=== PATIENT | male | born 1945 | race Caucasian/White ===

== ENCOUNTER 2023-09-21 12:08 | Outpatient (AMB) | payer MEDICARE, SELFPAY ==
--- NOTE | 2023-09-21 12:14 | HO.NEPHOV ---
HPI HPI Comments History of Present Illness Details I had the privilege of seeing Maverick in the office for his chronic kidney disease and hypertension. He was accompanied by his . In May this year he underwent angiography and stenting of his LAD . He had been on Brilinta at that time which has caused him to have GI bleed as well as mild intracranial bleed. Brilinta was stopped at that time. He underwent endoscopy and was found to have esophageal varices. He had banding of the same. He was meant to be started on Plavix but has not started that yet. He has not had cardiac rehab either yet. He has an upcoming cardiology appointment with Dr. Peck. He denies any chest pain, shortness of breath, proximal nocturnal dyspnea, orthopnea, pedal edema or orthostatic symptoms. He has not been taking any nonsteroidal anti-inflammatory medications. He has prostatic symptoms for which he has seen a urologist who recommended intervention which is on hold for now. He denies any nausea vomiting, diarrhea, hematemesis, melena or hematuria. He does not drink alcohol anymore. His blood pressure has been at goal at home. [facility] Medical History (Updated 09/21/23 @ 21:29 by Yo Wilkerson MD) Hypertension Surgical History (Updated 09/21/23 @ 12:19 by Bela Smith MA) History of endoscopy History of heart artery stent Family History (Updated 09/21/23 @ 12:20 by Bela Smith MA) Father Heart attack (Updated 09/21/23 @ 12:19 by Bela Smith MA) Alcohol intake: never Patient Tobacco Use Status: Former Tobacco user Vital Signs 09/21/23 12:16 Height 5 ft 11 in Weight 229 lb 4 oz BMI 32.0 BP 120/72 Blood Pressure Location Lt brachial Position Left Lateral Pulse 59 Pulse Source Pulse Oximeter Physical Exam Vital Signs: Last Vital Signs Pulse 59 09/21/23 12:16 BP 120/72 09/21/23 12:16 BMI result Body Mass Index 32.0 Const General: comfortable and no acute distress Orientation/consciousness: patient oriented x3 HEENT Head: Yes normocephalic Mouth: Normal oral and palatal mucosa present Eyes EOM: EOMs intact bilaterally Neck Neck: Yes supple Resp Auscultation: clear to auscultation bilaterally Cardio Jugular venous distension: no JVD Rate: regular rate GI Palpation (GI): Soft to palpation Auscultation: normal bowel sounds General: Yes no CVA tenderness Back/Spine/Pelvis Back: no CVA tenderness Skin General skin exam: no rashes or lesions noted Neuro General: patient oriented x3 and moves all extremities Extrem General: Yes no pedal edema Assessment & Plan Assessment & Plan (1) Hypertension: Code(s): I10 - Essential (primary) hypertension Qualifiers: Hypertension type: primary hypertension Qualified Code(s): I10 - Essential (primary) hypertension (2) CKD (chronic kidney disease) stage 3, GFR 30-59 ml/min: Code(s): N18.30 - Chronic kidney disease, stage 3 unspecified Qualifiers: Chronic kidney disease stage 3 subtype: stage 3a (GFR 45-59) Qualified Code(s): N18.31 - Chronic kidney disease, stage 3a Plan Maverick has chronic kidney disease stage 3 at baseline. He has coronary artery disease needing stenting recently. He did not have any contrast nephropathy or cholesterol embolism. His renal functions are stable. His blood pressure is at goal. He needs to lose weight. He had GI bleed and his Brilinta has been on hold . He needs to touch base with his senior materials planner and should go back on anticoagulation to prevent stent thrombosis . He should have a cardiac rehab. He has esophageal varices and is on propranolol. When appropriate we will start him on low-dose ANGELA-inhibitor. He has prostatic symptoms and needs definitive therapy by Urology. He should avoid nonsteroidal anti-inflammatory medication and should be on a low-sodium diet. All these have been discussed in detail with him and his . I have answered their questions. Follow-up blood work ordered. Time spent retrieving data, patient encounter and documentation 43 minutes. Orders: Orders Electrolytes Today I10 - Essential (primary) hypertension, N18.30 - Chronic kidney disease, stage 3 unspecified Blood Urea Nitrogen Today I10 - Essential (primary) hypertension, N18.30 - Chronic kidney disease, stage 3 unspecified Calcium Today I10 - Essential (primary) hypertension, N18.30 - Chronic kidney disease, stage 3 unspecified Creatinine Today I10 - Essential (primary) hypertension, N18.30 - Chronic kidney disease, stage 3 unspecified Protein Creatinine Ratio, Ur Today I10 - Essential (primary) hypertension, N18.30 - Chronic kidney disease, stage 3 unspecified Coding Level of Care Code Est Pt Level 4 (55250) Diagnoses Primary hypertension I10 Hypertension type: primary hypertension Stage 3a chronic kidney disease N18.31 Chronic kidney disease stage 3 subtype: stage 3a (GFR 45-59)
[2023-09-21 12:16] VITALS: BP 120/72; PULSE 59; BMI 32.0
== END 2023-09-21 14:13 | disposition home or self-care (01) ==
PROVIDERS: PCP Internal Medicine; Visit Provider Internal Medicine Nephrology
DX: I10 Essential (primary) hypertension (principal); N18.31 Chronic kidney disease, stage 3a
CPT/HCPCS: 99214

== ENCOUNTER → 2023-09-21 12:08 | Outpatient (BNVA) | payer MEDICARE, SELFPAY | PROVIDERS: PCP Internal Medicine; Visit Provider Internal Medicine Nephrology | DX: I12.9 Hypertensive chronic kidney disease with stage 1 through stage 4 chronic kidney disease, or unspecified chronic kidney disease (principal); N18.31 Chronic kidney disease, stage 3a; Z95.5 Presence of coronary angioplasty implant and graft | CPT/HCPCS: 99212 ==

== ENCOUNTER 2024-03-31 10:03 | Outpatient (AMB) | payer MEDICARE, SELFPAY ==
--- NOTE | 2024-03-31 10:20 | HO.NEPHOV ---
Vital Signs 03/31/24 10:22 Height 5 ft 11 in Weight 226 lb 8 oz BMI 31.6 BP 130/70 Blood Pressure Location Rt brachial Position Sitting Pulse 66 Pulse Source Pulse Oximeter Pulse Oximetry (%) 96 Oxygen Delivery Method Room Air Intake Visit Reasons: 6M follow up/ LVM Retirement Benefits Specialist Required: No Accompanied by: Self / Same As Patient Allergies No Known Allergies Allergy (Verified 03/31/24 10:24) HPI Comments Details: I had the privilege of seeing Maverick in the office for his chronic kidney disease and hypertension. He was accompanied by his . In May 2023 he underwent angiography and stenting of his LAD . He had been on Brilinta at that time which has caused him to have GI bleed as well as mild intracranial bleed. Brilinta was stopped at that time. He underwent endoscopy and was found to have esophageal varices. He had banding of the same. He denies any chest pain, shortness of breath, proximal nocturnal dyspnea, orthopnea, pedal edema or orthostatic symptoms. He has not been taking any nonsteroidal anti-inflammatory medications. He has prostatic symptoms for which he has seen a urologist ( Dr Isaacs). He denies any nausea vomiting, diarrhea, hematemesis, melena or hematuria. His blood pressure has been at goal at home. [facility] Medical History (Updated 09/21/23 @ 21:29 by Yo Wilkerson MD) Hypertension Surgical History History of endoscopy History of heart artery stent Family History Father Heart attack Social History Alcohol intake: never Patient Tobacco Use Status: Former Tobacco user Physical Exam Vital Signs: Last Vital Signs Pulse 66 03/31/24 10:22 BP 130/70 03/31/24 10:22 Pulse Ox 96 03/31/24 10:22 Oxygen Delivery Method Room Air 03/31/24 10:22 BMI result Body Mass Index 31.6 Const General: comfortable and no acute distress Orientation/consciousness: patient oriented x3 HEENT Head: Yes normocephalic Mouth: Normal oral and palatal mucosa present Eyes EOM: EOMs intact bilaterally Neck Neck: Yes supple Resp Auscultation: clear to auscultation bilaterally Cardio Jugular venous distension: no JVD Rate: regular rate GI Palpation (GI): Soft to palpation Auscultation: normal bowel sounds General: Yes no CVA tenderness Back/Spine/Pelvis Back: no CVA tenderness Skin General skin exam: no rashes or lesions noted Neuro General: patient oriented x3 and moves all extremities Extrem General: Yes no pedal edema Results Reviewed Nephrology Results: No Data to Display Assessment & Plan Assessment & Plan (1) CKD (chronic kidney disease) stage 3, GFR 30-59 ml/min: Code(s): N18.30 - Chronic kidney disease, stage 3 unspecified Category: Medical Qualifiers: Chronic kidney disease stage 3 subtype: stage 3a (GFR 45-59) Qualified Code(s): N18.31 - Chronic kidney disease, stage 3a (2) Hypertension: Code(s): I10 - Essential (primary) hypertension Category: Medical Qualifiers: Hypertension type: primary hypertension Qualified Code(s): I10 - Essential (primary) hypertension Plan Maverick has chronic kidney disease stage 3 at baseline. He has coronary artery disease needing stenting . He did not have any contrast nephropathy or cholesterol embolism. His renal functions are stable. His blood pressure is at goal. He needs to lose weight. He had GI bleed and his Brilinta has been on hold. He has esophageal varices and is on propranolol. When appropriate we will start him on low-dose ANGELA-inhibitor. He has prostatic symptoms and ideally he needs definitive therapy by Urology. He should avoid nonsteroidal anti-inflammatory medication and should be on a low-sodium diet. All these have been discussed in detail with him. I have answered their questions. Follow-up blood work ordered. Orders: Orders Electrolytes Today I10 - Essential (primary) hypertension, N18.31 - Chronic kidney disease, stage 3a Blood Urea Nitrogen Today I10 - Essential (primary) hypertension, N18.31 - Chronic kidney disease, stage 3a Creatinine Today I10 - Essential (primary) hypertension, N18.31 - Chronic kidney disease, stage 3a Coding Level of Care Code Est Pt Level 4 (75318) Diagnoses Stage 3a chronic kidney disease N18.31 Chronic kidney disease stage 3 subtype: stage 3a (GFR 45-59) Primary hypertension I10 Hypertension type: primary hypertension
[2024-03-31 10:22] VITALS: BP 130/70; PULSE 66; O2SAT 96; BMI 31.6
== END 2024-03-31 10:53 | disposition home or self-care (01) ==
PROVIDERS: PCP Internal Medicine; Visit Provider Internal Medicine Nephrology
DX: N18.31 Chronic kidney disease, stage 3a (principal); I10 Essential (primary) hypertension
CPT/HCPCS: 99214

== ENCOUNTER → 2024-03-31 10:03 | Outpatient (BNVA) | payer MEDICARE, SELFPAY | PROVIDERS: PCP Internal Medicine; Visit Provider Internal Medicine Nephrology | DX: I12.9 Hypertensive chronic kidney disease with stage 1 through stage 4 chronic kidney disease, or unspecified chronic kidney disease (principal); N18.31 Chronic kidney disease, stage 3a | CPT/HCPCS: 99212 ==

== ENCOUNTER 2024-09-29 11:01 | Outpatient (AMB) | payer MEDICARE, SELFPAY ==
--- NOTE | 2024-09-29 11:07 | HO.NEPHOV ---
Vital Signs 09/29/24 11:08 Height 5 ft 11 in Weight 225 lb BMI 31.4 BP 109/56 L Pulse 62 Pulse Source Monitor Intake Visit Reasons: 6 mon follow up-Conf Sandblaster Supervisor Required: No Accompanied by: Self / Same As Patient Allergies No Known Allergies Allergy (Verified 09/29/24 11:09) HPI Comments Details: Maverick was seen by [facility] for his chronic kidney disease and hypertension. In May 2023 he underwent angiography and stenting of his LAD . He had been on Brilinta at that time which has caused him to have GI bleed as well as mild intracranial bleed. Brilinta was stopped at that time. He underwent endoscopy and was found to have esophageal varices. He had banding of the same. He denies any chest pain, shortness of breath, proximal nocturnal dyspnea, orthopnea, pedal edema or orthostatic symptoms. He has not been taking any nonsteroidal anti-inflammatory medications. He has prostatic symptoms for which he has seen a urologist ( Dr Isaacs). He denies any nausea vomiting, diarrhea, hematemesis, melena or hematuria. His blood pressure has been at goal at home. He has been having SOB more so on exertion. He had seen Dr Peck. He had his Isosorbide dose increased to 60 mg. Farxiga was added to the regimen which he did not tolerate. He underwent cardiac catherterisation as well. His renal function remained stable. He has been having anemia and is going to F/U with GI given H/O banding. [facility] Medical History (Updated 09/21/23 @ 21:29 by Yo Wilkerson MD) Hypertension Surgical History History of endoscopy History of heart artery stent Family History Father Heart attack Social History Alcohol intake: never Patient Tobacco Use Status: Former Tobacco user Review of Systems Const All systems reviewed & are unremarkable except as noted in HPI and below Physical Exam Vital Signs: Last Vital Signs Pulse 62 09/29/24 11:08 BP 109/56 L 09/29/24 11:08 BMI result Body Mass Index 31.4 [facility]: Telephone Location of provider rendering services: practice address Location of patient: address on file Patient Identification confirmed using: Name, : Yes Telehealth method: voice only Patient verbally consented to treatment: Yes Patient verbally consented to billing insurance company: Yes Patient informed of any privacy concerns related to visit: No Minutes spent on Phone/Video with Pt.: 10 Results Reviewed Nephrology Results: No Data to Display Assessment & Plan Assessment & Plan (1) CKD (chronic kidney disease) stage 3, GFR 30-59 ml/min: Code(s): N18.30 - Chronic kidney disease, stage 3 unspecified Category: Medical Qualifiers: Chronic kidney disease stage 3 subtype: stage 3a (GFR 45-59) Qualified Code(s): N18.31 - Chronic kidney disease, stage 3a (2) Hypertension: Code(s): I10 - Essential (primary) hypertension Category: Medical Qualifiers: Hypertension type: primary hypertension Qualified Code(s): I10 - Essential (primary) hypertension Plan Maverick has chronic kidney disease stage 3 at baseline. He has coronary artery disease needing stenting . He did not have any contrast nephropathy or cholesterol embolism. His renal functions are stable. His blood pressure is at goal. He needs to lose weight. He has H/O GI bleed. He has esophageal varices and had banding. He is on propranolol. When appropriate we will start him on low-dose ANGELA-inhibitor. He has prostatic symptoms and ideally he needs definitive therapy by Urology. He should avoid nonsteroidal anti-inflammatory medication and should be on a low-sodium diet. All these have been discussed in detail with him. I have answered their questions. Follow-up blood work ordered Orders: Orders Blood Urea Nitrogen 6 Months I10 - Essential (primary) hypertension, N18.31 - Chronic kidney disease, stage 3a Creatinine 6 Months I10 - Essential (primary) hypertension, N18.31 - Chronic kidney disease, stage 3a Electrolytes 6 Months I10 - Essential (primary) hypertension, N18.31 - Chronic kidney disease, stage 3a Medications: New amlodipine 5 mg PO DAILY 90 tabs 0RF Coding Level of Care Code Est Pt Level 4 (69966) Diagnoses Stage 3a chronic kidney disease N18.31 Chronic kidney disease stage 3 subtype: stage 3a (GFR 45-59) Primary hypertension I10 Hypertension type: primary hypertension
[2024-09-29 11:08] VITALS: BP 109/56; PULSE 62; BMI 31.4
--- OUTSIDE RECORDS SUMMARY | 2024-10-05 01:49 | XMS_ITS | Continuity of Care Document ---
Author Organization [facility] Address [address] [place] [id number] Care Team Providers Care Cash Clerk Name Role Phone Hernesto Griffiths MD Primary Care Physician Encounter [facility] Date(s[facility] 08/24/24 - 09/23/24 [facility] [address] [place] [phone] Encounter Type: Triage Allergies, Adverse Reactions, Alerts Substance Criticality Severity Reaction Reaction Severity Status dapagliflozin Active Medications allopurinol 100 mg oral tablet 50 mg, 0.5, tablet, By Mouth, Daily, # 90 tablet, Refills 0, Maintenance, 08/09/24 9:01:00 AM EDT, Route to Pharmacy Electronically, [id number], 180, cm, 08/05/24 9:47:00 EDT, Height, 106, kg, 08/05/24 9:47:00 EDT, Dry Weight Start Date: 08/09/24 Status: Ordered Quantity: 90.0 Unit: tablet Repeat number: 1 amLODIPine 5 mg oral tablet 5 mg, 1, tablet, By Mouth, Daily, # 90 tablet, Refills 3, Tot. Refills 3, Maintenance, 08/05/24 7:30:00 PM EDT, Route to Pharmacy Electronically, [id number], Partial fill upon patient requestif the prescription is for a schedule II opioid drug., 180, cm, 08/05/24 9:47:00 EDT, Height, 106, kg, 08/05/24 9:47:00 EDT, Dry Weight Start Date: 08/05/24 Status: Ordered Quantity: 90.0 Unit: tablet Repeat number: 4 aspirin 81 mg oral delayed release tablet 81 mg, 1, tablet, By Mouth, Daily, # 90 tablet, Refills 0, Tot. Refills 0, Maintenance, 04/06/23 1:47:00 PM EDT, Route to Pharmacy Electronically, [facility] #[id number], Partial fill upon patient requestif the prescription is for a schedule II opioid drug., 180, cm, 04/06/23 13:11:00 EDT, Height, 105.1, kg, 04/17/22 14:02:00 EDT, Dry Weight Start Date: 04/06/23 Status: Ordered Quantity: 90.0 Unit: tablet Repeat number: 1 atorvastatin 20 mg oral tablet 1 tablet = 20 mg, By Mouth, Daily, # 90 tablet, 3 Refills, Maintenance, 05/13/24 3:20:00 PM EDT, Tablet, [id number], Partial fill upon patient request if the prescription is for a schedule II opioid drug., 180, cm, 05/13/24 14:36:00 EDT, Height Start Date: 05/13/24 Status: Ordered Quantity: 90.0 Unit: tablet Repeat number: 4 dapagliflozin 10 mg oral tablet 1 tablet = 10 mg, By Mouth, Daily, # 90 tablet, 0 Refills, Maintenance, 08/05/24 5:19:00 PM EDT, Tablet, [facility], Partial fill upon patient request if the prescription is for a schedule II opioid drug., 180, cm, 08/05/24 9:47:00 EDT, Height, 106, kg, 08/05/24 9:47:00 EDT, Dry Weight Start Date: 08/05/24 Status: Ordered Quantity: 90.0 Unit: tablet Repeat number: 1 ferrous sulfate 324 mg (65 mg elemental iron) oral delayed release tablet 1 tablet = 324 mg, By Mouth, Daily, # 90 tablet, 0 Refills, Maintenance, 08/15/24 9:41:00 AM EDT, [facility], Partial fill upon patient request if the prescription is for a schedule II opioiddrug., 180, cm, 08/15/24 9:08:00 EDT, Height, 106, kg, 08/05/24 9:47:00 EDT, Dry Weight Start Date: 08/15/24 Status: Ordered Quantity: 90.0 Unit: tablet Repeat number: 1 isosorbide mononitrate 60 mg oral tablet, extended release 60 mg, 1, tablet, By Mouth, Daily in AM, # 90 tablet, Refills 3, Tot. Refills 3, Maintenance, 08/29/24 12:09:00 PM EST, Route to Pharmacy Electronically, [facility], Partial fill upon patient request if the prescription is for a schedule II opioid drug., 180, cm, 08/15/24 9:08:00 EDT, Height, 106, kg, 08/05/24 9:47:00 EDT, Dry Weight Start Date: 08/29/24 Status: Ordered Quantity: 90.0 Unit: tablet Repeat number: 4 nadolol 20 mg oral tablet 10 mg, 0.5, tablet, By Mouth, Daily, # 15 tablet, Refills 11, Tot. Refills 11, Maintenance, 10/30/23 3:07:00 PM EST, Route to Pharmacy Electronically, [facility], Partial fill upon patient request if the prescription is for a schedule II opioid drug., 180, cm, 10/30/23 14:42:00 EST, Height, 105.1, kg, 04/17/22 14:02:00 EDT, Dry Weight Start Date: 10/30/23 Stop Date: 10/24/24 Status: Ordered Quantity: 15.0 Unit: tablet Repeat number: 12 nitroglycerin 0.4 mg sublingual tablet 1 tablet = 0.4 mg, Sublingual, Every 5 minutes, PRN as needed for chest pain, not to exceed 3 doses/15 min--if pain persists, seek medical attention, # 25 tablet, 0 Refills, Maintenance, 08/19/24 8:17:00 AM EDT, Tablet, [facility], Partial fill upon patient request if the prescription is for a schedule II opioid drug., 180, cm, 08/15/24 9:08:00 EDT, Height, 106, kg, 08/05/24 9:47:00 EDT, Dry Weight Start Date: 08/19/24 Status: Ordered Quantity: 25.0 Unit: tablet Repeat number: 1 Problem List Condition Confirmation Course Effective Dates Status H ealth Status Informant Aneurysm of infrarenal abdominal aorta Confirmed Active Aortic stenosis, 05/17 mild to mod Confirmed Active BPH without obstruction/lower urinary tract symptoms Confirmed Active Carotid artery stenosis; [facility] Confirmed Active CKD (chronic kidney disease) stage 3; Dr Wilkerson Confirmed Active Cirrhosis, [facility] Confirmed Active CAD s/p NADIR 06/17 Confirmed Active Alcohol use Confirmed Active Dyslipidemia Confirmed Active Liver enzyme elevation Confirmed Active Gout Confirmed Active Hard of hearing Confirmed Active History of upper gastrointestinal bleeding; banding x4; [facility] Confirmed Active Hypertension Confirmed Active Obese class I Confirmed Active Social History Social History Type Response Tobacco Other: quit aprox 83. Sex Sex Representation Male (finding) Patient Care team information Care Team Personnel Name: Rock POE, Yo Whitaker Position: [facility] Renal MD Member Role: Lifetime Consulting Physician Address: [address] [place] [address] [id number] [facility] [place] [id number]- [place] Tele[employer]: Name: Hernesto Griffiths MD Position: [facility] Physician - Primary Care Member Role: PCP Address: [address] [place] [id number] [place] Telecom: Name: Padmini Schmid RN Position: [facility] RN Member Role: Primary Care Nurse Name: Fernanda Styles NP Position: [facility] PCO Associate Professional Member Role: Primary Care Nurse Address: [address] [place] [address] [place] [address]- Telecom: Care Team Related Persons Name: SHARLENE BALES Insurance Providers Guarantor name: MYLA BALES Health Plan Information #: 1 Payer: MEDICARE PART B OUTPT Member Number: NA Policy Number: NA Group Number: NA
--- OUTSIDE RECORDS SUMMARY | 2024-10-05 01:49 | XMS_ITS | Continuity of Care Document ---
Author Organization [facility] Address [address] [place] [address]- Care Team Providers Care Field Mechanical Meter Tester Name Role Phone Hernesto Griffiths MD Primary Care Physician [place] [facility] [id number] Date(s): 08/19/24 - 09/18/24 [facility] [address] [place], [place] [address] Encounter Type: Triage Allergies, Adverse Reactions, Alerts No Known Medication Allergies Medications allopurinol 100 mg oral tablet 50 mg, 0.5, tablet, By Mouth, Daily, # 90 tablet, Refills 0, Maintenance, 08/09/24 9:01:00 AM EDT, Route to Pharmacy Electronically, [facility], 180, cm, 08/05/24 9:47:00 EDT, Height, 106, kg, 08/05/24 9:47:00 EDT, Dry Weight Start Date: 08/09/24 Status: Ordered Quantity: 90.0 Unit: tablet Repeat number: 1 amLODIPine 5 mg oral tablet 5 mg, 1, tablet, By Mouth, Daily, # 90 tablet, Refills 3, Tot. Refills 3, Maintenance, 08/05/24 7:30:00 PM EDT, Route to Pharmacy Electronically, [facility], Partial fill upon patient requestif [...] 1:47:00 PM EDT, Route to Pharmacy Electronically, [facility]/pharmacy #[id number], Partial fill upon patient requestif the prescription is for a schedule II opioid drug., 180, cm, 04/06/23 13:11:00 EDT, Height, 105.1, kg, 04/17/22 14:02:00 EDT, Dry Weight Start Date: 04/06/23 Status: Ordered Quantity: 90.0 Unit: tablet Repeat number: 1 atorvastatin 20 mg oral tablet 1 tablet = 20 mg, By Mouth, Daily, # 90 tablet, 3 Refills, Maintenance, 05/13/24 3:20:00 PM EDT, Tablet, [facility], Partial fill upon patient request if the prescription is for a schedule II opioid drug., 180, cm, 05/13/24 14:36:00 EDT, Height Start Date: 05/13/24 Status: Ordered Quantity: 90.0 Unit: tablet Repeat number: 4 dapagliflozin 10 mg oral tablet 1 tablet = 10 mg, By Mouth, Daily, # 90 tablet, 0 Refills, Maintenance, 08/05/24 5:19:00 PM EDT, Tablet, [facility] 3, Partial fill upon patient request if [...] 0 Refills, Maintenance, 08/15/24 9:41:00 AM EDT, [facility], Partial fill upon patient request [...] 12:09:00 PM EST, Route to Pharmacy Electronically, [facility], Partial fill upon patient [...] 3:07:00 PM EST, Route to Pharmacy Electronically, [facility], Partial fill upon patient [...] Refills, Maintenance, 08/19/24 8:17:00 AM EDT, Tablet, [facility], Partial fill upon patient [...] tract symptoms Confirmed Active Carotid artery stenosis; [facility] Confirmed Active CKD (chronic kidney disease) stage 3; Dr Wilkerson Confirmed Active Cirrhosis, [facility] Confirmed Active CAD s/p NADIR 06/17 Confirmed Active Alcohol use Confirmed Active Dyslipidemia Confirmed Active Liver enzyme elevation Confirmed Active Gout Confirmed Active Hard of hearing Confirmed Active History of upper gastrointestinal bleeding; banding x4; [facility] Confirmed Active Hypertension Confirmed Active Obese class I Confirmed Active Social History Social History Type Response Tobacco Other: quit aprox 19 83. Sex Sex Representation Male (finding) Patient Care team information Care Team Personnel Name: Rock POE, Yo Whitaker Position: [facility] Renal MD Member Role: Lifetime Consulting Physician Address: [address] [place] [address] [address] [place] [address]- [place] Telecom: Name: Hernesto Griffiths MD Position: [facility] Physician - Primary Care Member Role: PCP Address: [address] [address]- [place] Telecom: Name: Padmini Schmid RN Position: [facility] RN Member Role: Primary Care Nurse Name: Fernanda Styles NP Position: [facility] PCO Associate Professional Member Role: Primary Care Nurse Address: [address] [place] [address] [place] [address]- [place] Telecom: Care Team Related Persons Name: SHARLENE BALES Insurance Providers Guarantor name: MYLA BALES Health Plan Information #: 1 Payer: MEDICARE PART B OUTPT Member Number: NA Policy Number: NA Group Number: NA
--- OUTSIDE RECORDS SUMMARY | 2024-10-05 01:49 | XMS_ITS | Continuity of Care Document ---
Author Organization [facility] Address [address] [place] [address]- Care Team Providers Care Electrical Electronics Technician Name Role Phone Hernesto Griffiths MD Primary Care Physician [phone] [place] [facility] [place] 09/22/24 [facility] [address] [place] [address]- Encounter Type: Triage Allergies, Adverse Reactions, Alerts Substance Criticality Severity Reaction Reaction Severity Status dapagliflozin Active Medications allopurinol 100 mg oral tablet 50 mg, 0.5, tablet, By Mouth, Daily, # 90 tablet, Refills 0, Maintenance, 08/09/24 9:01:00 AM EDT, Route to Pharmacy Electronically, [facility], 180, cm, 08/05/24 9:47:00 EDT, Height, 106, kg, 08/05/24 9:47:00 EDT, Dry Weight Start Date: 08/09/24 Status: Ordered Quantity: 90.0 Unit: tablet Repeat number: 1 amLODIPine 5 mg oral tablet 5 mg, 1, tablet, By Mouth, Daily, # 90 tablet, Refills 3, Tot. Refills 3, Maintenance, 08/05/24 7:30:00 PM EDT, Route to Pharmacy Electronically, [facility], Partial fill upon patient requestif [...] 1:47:00 PM EDT, [id number] Partial fill upon patient requestif the prescription [...] Refills, Maintenance, 08/05/24 5:19:00 PM EDT, Tablet, [facility] 3, Partial fill upon patient request if [...] 12:09:00 PM EST, Route to Pharmacy Electronically, [facility], Partial fill upon patient [...] 3:07:00 PM EST, Route to Pharmacy Electronically, [facility], Partial fill upon patient [...] tract symptoms Confirmed Active Carotid artery stenosis; [facility] Confirmed Active CKD (chronic kidney disease) stage 3; Dr Wilkerson Confirmed Active Cirrhosis, [facility] Confirmed Active CAD s/p NADIR 06/17 Confirmed Active Alcohol use Confirmed Active Dyslipidemia Confirmed Active Liver enzyme elevation Confirmed Active Gout Confirmed Active Hard of hearing Confirmed Active History of upper gastrointestinal bleeding; banding x4; [facility] Confirmed Active Hypertension Confirmed Active Obese class I Confirmed Active Social History Social History Type Response Tobacco Other: quit aprox 19 83. Sex Sex Representation Male (finding) Patient Care team information Care Team Personnel Name: Yo Wilkerson MD Position: [facility] Renal MD Member Role: Lifetime Consulting Physician Address: [address] [place] [address] [address] [place] [address]- [place] Telecom: Name: Hernesto Griffiths MD Position: [facility] Physician - Primary Care Member Role: PCP Address: [address] [address]- [place] Telecom: Name: Padmini Schmid RN Position: [facility] RN Member Role: Primary Care Nurse Name: Fernanda Styles NP Position: [facility] PCO Associate Professional Member Role: Primary Care Nurse Address: [address] [place] [address] [place] [address]- [place] Telecom: Care Team Related Persons Name: SHARLENE BALES Insurance Providers Guarantor name: MYLA BALES Health Plan Information #: 1 Payer: MEDICARE PART B OUTPT Member Number: NA Policy Number: NA Group Number: NA
--- OUTSIDE RECORDS SUMMARY | 2024-10-05 01:49 | XMS_ITS | Continuity of Care Document ---
Author Organization [facility] Address [address] [place] [address]- Care Team Providers Care Gluing Machine Operator Name Role Phone Hernesto Griffiths MD Primary Care Physician [place] [facility] [place] [id number] Date(s): 08/19/24 - 09/18/24 [facility] [address] [place], [place] [address] Encounter Type: Triage Allergies, Adverse Reactions, Alerts No Known Medication Allergies Medications allopurinol 100 mg oral tablet 50 mg, 0.5, tablet, By Mouth, Daily, # 90 tablet, Refills 0, Maintenance, 08/09/24 9:01:00 AM EDT, Route to Pharmacy Electronically, [facility], 180, cm, 08/05/24 9:47:00 EDT, Height, 106, kg, 08/05/24 9:47:00 EDT, Dry Weight Start Date: 08/09/24 Status: Ordered Quantity: 90.0 Unit: tablet Repeat number: 1 amLODIPine 5 mg oral tablet 5 mg, 1, tablet, By Mouth, Daily, # 90 tablet, Refills 3, Tot. Refills 3, Maintenance, 08/05/24 7:30:00 PM EDT, Route to Pharmacy Electronically, [facility], Partial fill upon patient requestif [...] 1:47:00 PM EDT, Route to Pharmacy Electronically, [facility]/pharmacy #[id number], Partial fill upon patient requestif the prescription [...] Refills, Maintenance, 08/05/24 5:19:00 PM EDT, Tablet, [facility] 3, Partial fill upon patient request [...] 12:09:00 PM EST, Route to Pharmacy Electronically, [facility], Partial fill [...] 3:07:00 PM EST, Route to Pharmacy Electronically, [facility], Partial fill [...] tract symptoms Confirmed Active Carotid artery stenosis; [facility] Confirmed Active CKD (chronic kidney disease) stage 3; Dr Wilkerson Confirmed Active Cirrhosis, [facility] Confirmed Active CAD s/p NADIR 06/17 Confirmed Active Alcohol use Confirmed Active Dyslipidemia Confirmed Active Liver enzyme elevation Confirmed Active Gout Confirmed Active Hard of hearing Confirmed Active History of upper gastrointestinal bleeding; banding x4; [facility] Confirmed Active Hypertension Confirmed Active Obese class I Confirmed Active Social History Social History Type Response Tobacco Other: quit aprox 19 83. Sex Sex Representation Male (finding) Patient Care team information Care Team Personnel Name: Rock POE, Yo Whitaker Position: [facility] Renal MD Member Role: Lifetime Consulting Physician Address: [address] [place] [address] [address] [place] [address]- [place] Telecom: Name: Hernesto Griffiths MD Position: [facility] Physician - Primary Care Member Role: PCP Address: [address] [address]- [place] Telecom: Name: Padmini Schmid RN Position: [facility] RN Member Role: Primary Care Nurse Name: Fernanda Styles NP Position: [facility] PCO Associate Professional Member Role: Primary Care Nurse Address: [address] [place] [address] [place] [address]- [place] Telecom: Care Team Related Persons Name: SHARLENE BALES Insurance Providers Guarantor name: MYLA BALES Health Plan Information #: 1 Payer: MEDICARE PART B OUTPT Member Number: NA Policy Number: NA Group Number: NA
--- OUTSIDE RECORDS SUMMARY | 2024-10-05 01:49 | XMS_ITS | Continuity of Care Document ---
Author Organization [facility] Address [address] [place] [address]- Care Team Providers Care High Tension Tester Name Role Phone Hernesto Griffiths MD Primary Care Physician [place] [facility] [place] 08/23/24 - 09/22/24 [facility] [address] [place] [address]- Encounter Type: Triage Allergies, Adverse Reactions, Alerts Substance Criticality Severity Reaction Reaction Severity Status dapagliflozin Active Medications allopurinol 100 mg oral tablet 50 mg, 0.5, tablet, By Mouth, Daily, # 90 tablet, Refills 0, Maintenance, 08/09/24 9:01:00 AM EDT, Route to Pharmacy Electronically, [facility], 180, cm, 08/05/24 9:47:00 EDT, Height, 106, kg, 08/05/24 9:47:00 EDT, Dry Weight Start Date: 08/09/24 Status: Ordered Quantity: 90.0 Unit: tablet Repeat number: 1 amLODIPine 5 mg oral tablet 5 mg, 1, tablet, By Mouth, Daily, # 90 tablet, Refills 3, Tot. Refills 3, Maintenance, 08/05/24 7:30:00 PM EDT, Route to Pharmacy Electronically, [facility], Partial fill upon patient requestif [...] PM EDT, Route to Pharmacy Electronically, [facility]/pharmacy #[id number], Partial fill upon patient requestif the prescription is for a schedule II opioid drug., 180, cm, 04/06/23 13:11:00 EDT, Height, 105.1, kg, 04/17/22 14:02:00 EDT, Dry Weight Start Date: 04/06/23 Status: Ordered Quantity: 90.0 Unit: tablet Repeat number: 1 atorvastatin 20 mg oral tablet 1 tablet = 20 mg, By Mouth, Daily, # 90 tablet, 3 Refills, Maintenance, 05/13/24 3:20:00 PM EDT, Tablet, [facility], Partial fill upon patient request if the prescription is for a schedule II opioid drug., 180, cm, 05/13/24 14:36:00 EDT, Height Start Date: 05/13/24 Status: Ordered Quantity: 90.0 Unit: tablet Repeat number: 4 dapagliflozin 10 mg oral tablet 1 tablet = 10 mg, By Mouth, Daily, # 90 tablet, 0 Refills, Maintenance, 08/05/24 5:19:00 PM EDT, Tablet, [facility] 3, Partial fill upon patient request if [...] 0 Refills, Maintenance, 08/15/24 9:41:00 AM EDT, [facility], Partial fill upon [...] 12:09:00 PM EST, Route to Pharmacy Electronically, [facility], Partial fill upon patient [...] 3:07:00 PM EST, Route to Pharmacy Electronically, [facility], Partial fill upon [...] Refills, Maintenance, 08/19/24 8:17:00 AM EDT, Tablet, [facility], Partial fill upon [...] tract symptoms Confirmed Active Carotid artery stenosis; [facility] Confirmed Active CKD (chronic kidney disease) stage 3; Dr Wilkerson Confirmed Active Cirrhosis, [facility] Confirmed Active CAD s/p NADIR 06/17 Confirmed Active Alcohol use Confirmed Active Dyslipidemia Confirmed Active Liver enzyme elevation Confirmed Active Gout Confirmed Active Hard of hearing Confirmed Active History of upper gastrointestinal bleeding; banding x4; [facility] Confirmed Active Hypertension Confirmed Active Obese class I Confirmed Active Social History Social History Type Response Tobacco Other: quit aprox 82. Sex Sex Representation Male (finding) Patient Care team information Care Team Personnel Name: Rock POE, Yo Whitaker Position: [facility] Renal MD Member Role: Lifetime Consulting Physician Address: [address] [place] [address] [address] [place] [address]- [place] Telecom: Name: Hernesto Griffiths MD Position: [facility] Physician - Primary Care Member Role: PCP Address: [address] [place] [address]- [place] Telecom: Name: Padmini Schmid RN Position: [facility] RN Member Role: Primary Care Nurse Name: Fernanda Styles NP Position: [facility] PCO Associate Professional Member Role: Primary Care Nurse Address: [address] [place] [address] [place] [address]- Telecom: Care Team Related Persons Name: SHARLENE BALES Insurance Providers Guarantor name: MYLA BALES Health Plan Information #: 1 Payer: MEDICARE PART B OUTPT Member Number: NA Policy Number: NA Group Number: NA
--- OUTSIDE RECORDS SUMMARY | 2024-10-05 01:49 | XMS_ITS | Continuity of Care Document ---
Author Organization [facility] Address [address] [place] [address]- Care Team Providers Care Drywall Taper Name Role Phone Hernesto Griffiths MD Primary Care Physician [phone] Encounter [facility] [place] Date(s): 08/23/24 - 09/22/24 [facility] [address] [place] [address]- Encounter Type: Triage Allergies, Adverse Reactions, Alerts Substance Criticality Severity Reaction Reaction Severity Status dapagliflozin Active Medications allopurinol 100 mg oral tablet 50 mg, 0.5, tablet, By Mouth, Daily, # 90 tablet, Refills 0, Maintenance, 08/09/24 9:01:00 AM EDT, Route to Pharmacy Electronically, [facility], 180, cm, 08/05/24 9:47:00 EDT, Height, 106, kg, 08/05/24 9:47:00 EDT, Dry Weight Start Date: 08/09/24 Status: Ordered Quantity: 90.0 Unit: tablet Repeat number: 1 amLODIPine 5 mg oral tablet 5 mg, 1, tablet, By Mouth, Daily, # 90 tablet, Refills 3, Tot. Refills 3, Maintenance, 08/05/24 7:30:00 PM EDT, Route to Pharmacy Electronically, [facility], Partial fill upon patient requestif [...] 1:47:00 PM EDT, Route to Pharmacy Electronically, [facility]/pharmacy #[id number], Partial fill upon patient requestif the prescription is for a schedule II opioid drug., 180, cm, 04/06/23 13:11:00 EDT, Height, 105.1, kg, 04/17/22 14:02:00 EDT, Dry Weight Start Date: 04/06/23 Status: Ordered Quantity: 90.0 Unit: tablet Repeat number: 1 atorvastatin 20 mg oral tablet 1 tablet = 20 mg, By Mouth, Daily, # 90 tablet, 3 Refills, Maintenance, 05/13/24 3:20:00 PM EDT, Tablet, [facility], Partial fill upon patient request if the prescription is for a schedule II opioid drug., 180, cm, 05/13/24 14:36:00 EDT, Height Start Date: 05/13/24 Status: Ordered Quantity: 90.0 Unit: tablet Repeat number: 4 dapagliflozin 10 mg oral tablet 1 tablet = 10 mg, By Mouth, Daily, # 90 tablet, 0 Refills, Maintenance, 08/05/24 5:19:00 PM EDT, Tablet, [facility] 3, Partial fill upon patient request [...] 0 Refills, Maintenance, 08/15/24 9:41:00 AM EDT, [facility], Partial fill upon patient request [...] 12:09:00 PM EST, Route to Pharmacy Electronically, [facility], Partial fill [...] 3:07:00 PM EST, Route to Pharmacy Electronically, [facility], Partial fill upon patient request [...] Refills, Maintenance, 08/19/24 8:17:00 AM EDT, Tablet, [facility], Partial fill upon patient request [...] tract symptoms Confirmed Active Carotid artery stenosis; [facility] Confirmed Active CKD (chronic kidney disease) stage 3; Dr Wilkerson Confirmed Active Cirrhosis, [facility] Confirmed Active CAD s/p NADIR 06/17 Confirmed Active Alcohol use Confirmed Active Dyslipidemia Confirmed Active Liver enzyme elevation Confirmed Active Gout Confirmed Active Hard of hearing Confirmed Active History of upper gastrointestinal bleeding; banding x4; [facility] Confirmed Active Hypertension Confirmed Active Obese class I Confirmed Active Social History Social History Type Response Tobacco Other: quit aprox 83. Sex Sex Representation Male (finding) Patient Care team information Care Team Personnel Name: Rock POE, Yo Whitaker Position: [facility] Renal MD Member Role: Lifetime Consulting Physician Address: [address] [place] [address] [address] [place] [address]- [place] Telecom: Name: Hernesto Griffiths MD Position: [facility] Physician - Primary Care Member Role: PCP Address: [address] [place] [address]- [place] Telecom: Name: Padmini Schmid RN Position: [facility] RN Member Role: Primary Care Nurse Name: Fernanda Styles NP Position: [facility] PCO Associate Professional Member Role: Primary Care Nurse Address: [address] [place] [address] [place] [address]- Telecom: Care Team Related Persons Name: SHARLENE BALES Insurance Providers Guarantor name: MYLA BALES Health Plan Information #: 1 Payer: MEDICARE PART B OUTPT Member Number: NA Policy Number: NA Group Number: NA
--- OUTSIDE RECORDS SUMMARY | 2024-10-05 01:49 | XMS_ITS | Continuity of Care Document ---
Author Organization [facility] Address [address] [place] [address]- Care Team Providers Care Care Professionals Name Role Phone Hernesto Griffiths MD Primary Care Physician En[place] [facility] [place] Date(s): 08/24/24 - 09/23/24 [facility] [address] [place] [address]- Encounter Type: Triage Allergies, Adverse Reactions, Alerts Substance Criticality Severity Reaction Reaction Severity Status dapagliflozin Active Medications allopurinol 100 mg oral tablet 50 mg, 0.5, tablet, By Mouth, Daily, # 90 tablet, Refills 0, Maintenance, 08/09/24 9:01:00 AM EDT, Route to Pharmacy Electronically, [facility], 180, cm, 08/05/24 9:47:00 EDT, Height, 106, kg, 08/05/24 9:47:00 EDT, Dry Weight Start Date: 08/09/24 Status: Ordered Quantity: 90.0 Unit: tablet Repeat number: 1 amLODIPine 5 mg oral tablet 5 mg, 1, tablet, By Mouth, Daily, # 90 tablet, Refills 3, Tot. Refills 3, Maintenance, 08/05/24 7:30:00 PM EDT, Route to Pharmacy Electronically, [facility], Partial fill upon patient requestif [...] 1:47:00 PM EDT, Route to Pharmacy Electronically, [facility]/pharmacy #[id number], Partial fill upon patient requestif the prescription is for a schedule II opioid drug., 180, cm, 04/06/23 13:11:00 EDT, Height, 105.1, kg, 04/17/22 14:02:00 EDT, Dry Weight Start Date: 04/06/23 Status: Ordered Quantity: 90.0 Unit: tablet Repeat number: 1 atorvastatin 20 mg oral tablet 1 tablet = 20 mg, By Mouth, Daily, # 90 tablet, 3 Refills, Maintenance, 05/13/24 3:20:00 PM EDT, Tablet, [facility], Partial fill upon patient request if the prescription is for a schedule II opioid drug., 180, cm, 05/13/24 14:36:00 EDT, Height Start Date: 05/13/24 Status: Ordered Quantity: 90.0 Unit: tablet Repeat number: 4 dapagliflozin 10 mg oral tablet 1 tablet = 10 mg, By Mouth, Daily, # 90 tablet, 0 Refills, Maintenance, 08/05/24 5:19:00 PM EDT, Tablet, [facility] 3, Partial fill upon patient request [...] 0 Refills, Maintenance, 08/15/24 9:41:00 AM EDT, [facility], Partial fill upon patient [...] 12:09:00 PM EST, Route to Pharmacy Electronically, [facility], Partial [...] 3:07:00 PM EST, Route to Pharmacy Electronically, [facility], Partial fill upon patient [...] Refills, Maintenance, 08/19/24 8:17:00 AM EDT, Tablet, [facility], Partial fill upon patient [...] tract symptoms Confirmed Active Carotid artery stenosis; [facility] Confirmed Active CKD (chronic kidney disease) stage 3; Dr Wilkerson Confirmed Active Cirrhosis, [facility] Confirmed Active CAD s/p NADIR 06/17 Confirmed Active Alcohol use Confirmed Active Dyslipidemia Confirmed Active Liver enzyme elevation Confirmed Active Gout Confirmed Active Hard of hearing Confirmed Active History of upper gastrointestinal bleeding; banding x4; [facility] Confirmed Active Hypertension Confirmed Active Obese class I Confirmed Active Social History Social History Type Response Tobacco Other: quit aprox 82. Sex Sex Representation Male (finding) Patient Care team information Care Team Personnel Name: Rock POE, Yo Whitaker Position: [facility] Renal MD Member Role: Lifetime Consulting Physician Address: [address] [place] [address] [address] [facility] [place] [address]- [place] Telecom: Name: Hernesto Griffiths MD Position: [facility] Physician - Primary Care Member Role: PCP Address: [address] [place] [address]- [place] Telecom: Name: Padmini Schmid RN Position: [facility] RN Member Role: Primary Care Nurse Name: Fernanda Styles NP Position: [facility] PCO Associate Professional Member Role: Primary Care Nurse Address: [address] [place] [address] [place] [address]- Telecom: Care Team Related Persons Name: SHARLENE BALES Insurance Providers Guarantor name: MYLA BALES Health Plan Information #: 1 Payer: MEDICARE PART B OUTPT Member Number: NA Policy Number: NA Group Number: NA
--- OUTSIDE RECORDS SUMMARY | 2024-10-05 01:49 | XMS_ITS | Continuity of Care Document ---
Author Organization [facility] Address [address] [place] [address]- Care Team Providers Care Light Technician Name Role Phone Hernesto Griffiths MD Primary Care Physician [phone] Encounter [facility] [place] [facility] ACCT R [id number] Date(s): 08/09/24 - 09/08/24 [facility] [address] [place], [place] [address] Encounter Type: Triage Allergies, Adverse Reactions, Alerts No Known Medication Allergies Medications allopurinol 100 mg oral tablet 50 mg, 0.5, tablet, By Mouth, Daily, # 90 tablet, Refills 0, Maintenance, 08/09/24 9:01:00 AM EDT, Route to Pharmacy Electronically, [facility], 180, cm, 08/05/24 9:47:00 EDT, Height, 106, kg, 08/05/24 9:47:00 EDT, Dry Weight Start Date: 08/09/24 Status: Ordered Quantity: 90.0 Unit: tablet Repeat number: 1 amLODIPine 5 mg oral tablet 5 mg, 1, tablet, By Mouth, Daily, # 90 tablet, Refills 3, Tot. Refills 3, Maintenance, 08/05/24 7:30:00 PM EDT, Route to Pharmacy Electronically, [facility], Partial fill upon patient requestif [...] 1:47:00 PM EDT, [id number] Partial fill upon patient requestif the prescription [...] Refills, Maintenance, 08/05/24 5:19:00 PM EDT, Tablet, [facility], Partial fill upon patient request if [...] PM EST, Route to Pharmacy Electronically, [facility], Partial fill upon [...] 3:07:00 PM EST, Route to Pharmacy Electronically, [facility], Partial fill upon [...] tract symptoms Confirmed Active Carotid artery stenosis; [facility] Confirmed Active CKD (chronic kidney disease) stage 3; Dr Wilkerson Confirmed Active Cirrhosis, [facility] Confirmed Active CAD s/p NADIR 06/17 Confirmed Active Alcohol use Confirmed Active Dyslipidemia Confirmed Active Liver enzyme elevation Confirmed Active Gout Confirmed Active Hard of hearing Confirmed Active History of upper gastrointestinal bleeding; banding x4; [facility] Confirmed Active Hypertension Confirmed Active Obese class I Confirmed Active Social History Social History Type Response Tobacco Other: quit aprox 19 83. Sex Sex Representation Male (finding) Patient Care team information Care Team Personnel Name: Rock POE, Yo Whitaker Position: [facility] Renal MD Member Role: Lifetime Consulting Physician Address: [address] [place] [address] [address] [facility] [place] [address]- [place] Telecom: Name: Hernesto Griffiths MD Position: [facility] Physician - Primary Care Member Role: PCP Address: [address] [address]- [place] Telecom: Name: Padmini Schmid RN Position: [facility] RN Member Role: Primary Care Nurse Name: Fernanda Styles NP Position: [facility] PCO Associate Professional Member Role: Primary Care Nurse Address: [address] [place] [address] [place] [address]- [place] Telecom: Care Team Related Persons Name: SHARLENE BALES Insurance Providers Guarantor name: MYLA BALES Health Plan Information #: 1 Payer: MEDICARE PART B OUTPT Member Number: NA Policy Number: NA Group Number: NA
== END 2024-09-29 15:26 | disposition home or self-care (01) ==
PROVIDERS: PCP Internal Medicine; Visit Provider Internal Medicine Nephrology
DX: N18.31 Chronic kidney disease, stage 3a (principal); I10 Essential (primary) hypertension
CPT/HCPCS: 99214

== ENCOUNTER → 2024-09-29 11:01 | Outpatient (BNVA) | payer MEDICARE, SELFPAY | PROVIDERS: PCP Internal Medicine; Visit Provider Internal Medicine Nephrology | DX: N18.31 Chronic kidney disease, stage 3a (principal); I12.9 Hypertensive chronic kidney disease with stage 1 through stage 4 chronic kidney disease, or unspecified chronic kidney disease; R06.02 Shortness of breath | CPT/HCPCS: 99212 ==

== ENCOUNTER 2025-06-20 11:13 | Outpatient (AMB) | payer MEDICARE, SELFPAY ==
--- OUTSIDE RECORDS SUMMARY | 2025-06-15 23:59 | XMS_ITS | Continuity of Care Document ---
Author Organization [facility] Address [address] [place] [address]- Care Team Providers Care Core Microarchitect Name Role Phone Hernesto Griffiths MD Primary Care Physician [phone] Encounter [facility] Date(s): 05/16/25 - 06/15/25 [facility] [address] [place] [address]- Encounter Type: Triage Allergies, Adverse Reactions, Alerts Substance Criticality Severity Reaction Reaction Severity Status dapagliflozin Active Medications ferrous sulfate 325 mg oral tablet 1 tablet = 325 mg, By Mouth, Daily, 0 Refills, Maintenance, 05/22/25 9:39:00 PM EDT, Partial fill upon patient request if the prescription is for a schedule II opioid drug. Start Date: 05/22/25 Status: Ordered Repeat number: 1 fluticasone CFC free 220 mcg/inh inhalation aerosol 1 puffs, Inhalation, 2 times a day, rinse mouth and throat after use, # 12 Gm, 0 Refills, Maintenance, 02/16/25 10:16:00 AM EDT, Aerosol, [facility], Partial fill upon patient request if the prescription is for a schedule II opioid drug., 180, cm, 11/18/24 16:10:00 EST, Height, 105, kg, 11/18/24 16:06:00 EST, Dry Weight Start Date: 02/16/25 Status: Ordered Quantity: 12.0 Unit: g Repeat number: 1 Problem List Condition Confirmation Course Effective Dates Status H ealth Status Informant Aneurysm of infrarenal abdominal aorta Confirmed Active Aortic stenosis, 05/18 mild to mod Confirmed Active BPH without obstruction/lower urinary tract symptoms Confirmed Active Carotid artery stenosis; [facility] Confirmed Active CKD (chronic kidney disease) stage 3; Dr Wilkerson Confirmed Active Cirrhosis, [facility] Confirmed Active CAD s/p NADIR 06/17 Confirmed Active Alcohol use Confirmed Active Dyslipidemia Confirmed Active Liver enzyme elevation Confirmed Active Gout Confirmed Active Hard of hearing Confirmed Active History of upper gastrointestinal bleeding; banding x4; [facility] Confirmed Active Hypertension Confirmed Active Obese class I Confirmed Active Pancytopenia 1 Confirmed Active Portal hypertension 2 Confirmed Active Splenomegaly 3 Confirmed Active 1Per pcp note 05/22/25. 2Per [facility] note 08/18/23: -portal gastropathy, hx of banded esophageal varices; splenomegaly on CT 07/15/23. 3Per [facility] note 08/18/23: per CT scan 07/15/23. Social History Social History Type Response Tobacco Other: quit aprox . Sex Sex Representation Male (finding) Patient Care team information Care Team Personnel Name: Rock POE, Yo Whitaker Position: [facility] Renal MD Member Role: Lifetime Consulting Physician Address: [address] [place] [address] [address] [place] [address]- Telecom: Name: Hernesto Griffiths MD Position: [facility] Physician - Primary Care Member Role: PCP Address: [address] [address]- Telecom: Name: Padmini Schmid RN Position: [facility] RN Member Role: Primary Care Nurse Name: Fernanda Styles NP Position: [facility] PCO Associate Professional Member Role: Primary Care Nurse Address: [address] [place] [address] [place] [address]- [place] Telecom: Care Team Related Persons Name: SHARLENE BALES Insurance Providers Guarantor name: MYLA BALES Health Plan Information #: 1 Payer: MEDICARE B Payer Identifier: NA Member Number: [id number] Group Number: NA Subscriber Identifier: [id number] Relationship to Subscriber: self Coverage Type: NA Coverage Verification Date: NA Telecom: NA Address: NA
--- OUTSIDE RECORDS SUMMARY | 2025-06-16 23:59 | XMS_ITS | Continuity of Care Document ---
Author Organization [facility] Address [address] [place] [address]- Care Team Providers Care Process Improvement Engineer Name Role Phone Hernesto Griffiths MD Primary Care Physician Encounter [facility] Date(s): 05/17/25 - 06/16/25 [facility] [address] [place] [address]- Encounter Type: Triage Allergies, Adverse Reactions, Alerts [...] tract symptoms Confirmed Active Carotid artery stenosis; [facility] Confirmed Active CKD (chronic kidney disease) stage 3; Dr Wilkerson Confirmed Active Cirrhosis, [facility] Confirmed Active CAD s/p NADIR 06/17 Confirmed Active Alcohol use Confirmed Active Dyslipidemia Confirmed Active Liver enzyme elevation Confirmed Active Gout Confirmed Active Hard of hearing Confirmed Active History of upper gastrointestinal bleeding; banding x4; [facility] Confirmed Active Hypertension Confirmed Active Obese class I Confirmed Active Pancytopenia 1 Confirmed Active Portal hypertension 2 Confirmed Active Splenomegaly 3 Confirmed Active 1Per pcp note 05/22/25. 2Per [facility] note 08/18/23: -portal gastropathy, hx of banded esophageal varices; splenomegaly on CT 07/15/23. 3Per [facility] note 08/18/23: per CT scan 07/15/23. Social History Social History Type Response Tobacco Other: quit aprox . Sex Sex Representation Male (finding) Patient Care team information Care Team Personnel Name: Rock POE, Yo Whitaker Position: [facility] Renal MD Member Role: Lifetime Consulting Physician Address: [address] [place] [address] [address] [place] [address]- Telecom: Name: Hernesto Griffiths MD Position: [facility] Physician - Primary Care Member Role: PCP Address: [address], [place] [address]- Telecom: Name: Padmini Schmid RN Position: [facility] RN Member Role: Primary Care Nurse Name: Fernanda Styles NP Position: [facility] PCO Associate Professional Member Role: Primary Care Nurse Address: [address] [place] [address] [place] [address]- [place] Telecom: Care Team Related Persons Name: SHARLENE BALES Insurance Providers Guarantor name: MYLA BALES Health Plan Information #: 1 Payer: MEDICARE B Payer Identifier: NA Member Number: [id number] Group Number: NA Subscriber Identifier: [id number] Relationship to Subscriber: self Coverage Type: NA Coverage Verification Date: NA Telecom: NA Address: NA
--- OUTSIDE RECORDS SUMMARY | 2025-06-16 23:59 | XMS_ITS | Continuity of Care Document ---
Author Organization [facility] Address [address] [place] [address]- Care Team Providers Care Aquatic Facility Manager Name Role Phone Hernesto Griffiths MD Primary Care Physician Encounter [facility] Date(s): 05/17/25 - 06/16/25 [facility] [address] [place] [address]- Encounter Type: Triage Allergies, Adverse Reactions, Alerts [...] tract symptoms Confirmed Active Carotid artery stenosis; [facility] Confirmed Active CKD (chronic kidney disease) stage 3; Dr Wilkerson Confirmed Active Cirrhosis, [facility] Confirmed Active CAD s/p NADIR 06/17 Confirmed Active Alcohol use Confirmed Active Dyslipidemia Confirmed Active Liver enzyme elevation Confirmed Active Gout Confirmed Active Hard of hearing Confirmed Active History of upper gastrointestinal bleeding; banding x4; [facility] Confirmed Active Hypertension Confirmed Active Obese class I Confirmed Active Pancytopenia 1 Confirmed Active Portal hypertension 2 Confirmed Active Splenomegaly 3 Confirmed Active 1Per pcp note 05/22/25. 2Per [facility] note 08/18/23: -portal gastropathy, hx of banded esophageal varices; splenomegaly on CT 07/15/23. 3Per [facility] note 08/18/23: per CT scan 07/15/23. Social History Social History Type Response Tobacco Other: quit aprox . Sex Sex Representation Male (finding) Patient Care team information Care Team Personnel Name: Rock POE, Yo Whitaker Position: [facility] Renal MD Member Role: Lifetime Consulting Physician Address: [address] [place] [address] [address] [place] [address]- Telecom: Name: Hernesto Griffiths MD Position: [facility] Physician - Primary Care Member Role: PCP Address: [address] [address]- Telecom: Name: Padmini Schmid RN Position: [facility] RN Member Role: Primary Care Nurse Name: Fernanda Styles NP Position: [facility] PCO Associate Professional Member Role: Primary Care Nurse Address: [address] [place] [address] [place] [address]- [place] Telecom: Care Team Related Persons Name: SHARLENE BALES Insurance Providers Guarantor name: MYLA BALES Health Plan Information #: 1 Payer: MEDICARE B Payer Identifier: NA Member Number: [id number] Group Number: NA Subscriber Identifier: [id number] Relationship to Subscriber: self Coverage Type: NA Coverage Verification Date: NA Telecom: NA Address: NA
--- NOTE | 2025-06-20 11:39 | HO.NEPHOV ---
Vital Signs 06/20/25 11:43 Height 5 ft 11 in Weight 219 lb 4 oz BMI 30.6 BP 130/80 Blood Pressure Location Lt brachial Position Sitting Pulse 72 Pulse Source Pulse Oximeter Pulse Oximetry (%) 96 Oxygen Delivery Method Room Air Intake Visit Reasons: F/U Night Shift Required: No Accompanied by: Self / Same As Patient Allergies No Known Allergies Allergy (Verified 06/20/25 11:43) HPI Comments Details: Maverick was seen by for his chronic kidney disease and hypertension. He currently has Lyme and is on Doxycycline. In May 2023 he underwent angiography and stenting of his LAD . He had been on Brilinta at that time which has caused him to have GI bleed as well as mild intracranial bleed. Brilinta was stopped at that time. He underwent endoscopy and was found to have esophageal varices. He had banding of the same. He denies any chest pain, shortness of breath, proximal nocturnal dyspnea, orthopnea, pedal edema or orthostatic symptoms. He has not been taking any nonsteroidal anti-inflammatory medications. He has prostatic symptoms for which he has seen a urologist ( Dr Isaacs). He denies any nausea vomiting, diarrhea, hematemesis, melena or hematuria. His blood pressure has been at goal at home. He has been having SOB more so on exertion. He had seen Dr [place]. He was on Isosorbide which he has discontinued . Farxiga was added to the regimen which he did not tolerate. He underwent cardiac catherterisation as well. His renal function remained stable. He has been having anemia needs F/U GI and Hematology. [facility] Medical History (Updated 09/21/23 @ 21:29 by Yo Wilkerson MD) Hypertension Surgical History History of endoscopy History of heart artery stent Family History Father Heart attack Social History Alcohol intake: never Patient Tobacco Use Status: Former Tobacco user Review of Systems Const All systems reviewed & are unremarkable except as noted in HPI and below Physical Exam Vital Signs: Last Vital Signs Pulse 72 06/20/25 11:43 BP 130/80 06/20/25 11:43 Pulse Ox 96 06/20/25 11:43 Oxygen Delivery Method Room Air 06/20/25 11:43 BMI result Body Mass Index 30.6 Const General: comfortable and no acute distress Orientation/consciousness: patient oriented x3 HEENT Head: Yes normocephalic Mouth: Normal oral and palatal mucosa present Eyes EOM: EOMs intact bilaterally Neck Neck: Yes supple Resp Auscultation: clear to auscultation bilaterally Cardio Jugular venous distension: no JVD Rate: regular rate GI Palpation (GI): Soft to palpation Auscultation: normal bowel sounds General: Yes no CVA tenderness Back/Spine/Pelvis Back: no CVA tenderness Skin General skin exam: no rashes or lesions noted Neuro General: patient oriented x3 and moves all extremities Extrem General: Yes no pedal edema Assessment & Plan Assessment & Plan (1) CKD (chronic kidney disease) stage 3, GFR 30-59 ml/min: Code(s): N18.30 - Chronic kidney disease, stage 3 unspecified Category: Medical Qualifiers: Chronic kidney disease stage 3 subtype: stage 3a (GFR 45-59) Qualified Code(s): N18.31 - Chronic kidney disease, stage 3a (2) Hypertension: Code(s): I10 - Essential (primary) hypertension Category: Medical Qualifiers: Hypertension type: primary hypertension Qualified Code(s): I10 - Essential (primary) hypertension Plan Maverick has chronic kidney disease stage 3 at baseline. He has coronary artery disease needing stenting . He did not have any contrast nephropathy or cholesterol embolism. His renal functions are stable. His blood pressure is at goal. He needs to lose weight. He has H/O GI bleed. He has esophageal varices and had banding. He is on propranolol. When appropriate we should start him on low-dose ANGELA-inhibitor. He has prostatic symptoms and ideally he needs definitive therapy by Urology. He should avoid nonsteroidal anti-inflammatory medication and should be on a low-sodium diet. All these have been discussed in detail with him. I have answered their questions. Follow-up blood work ordered Orders: Orders Protein Creatinine Ratio, Ur 6 Months I10 - Essential (primary) hypertension, N18.31 - Chronic kidney disease, stage 3a Electrolytes 6 Months I10 - Essential (primary) hypertension, N18.31 - Chronic kidney disease, stage 3a Blood Urea Nitrogen 6 Months I10 - Essential (primary) hypertension, N18.31 - Chronic kidney disease, stage 3a Creatinine 6 Months I10 - Essential (primary) hypertension, N18.31 - Chronic kidney disease, stage 3a Coding Level of Care Code Est Pt Level 4 (32463) Diagnoses Stage 3a chronic kidney disease N18.31 Chronic kidney disease stage 3 subtype: stage 3a (GFR 45-59) Primary hypertension I10 Hypertension type: primary hypertension
[2025-06-20 11:43] VITALS: BP 130/80; PULSE 72; O2SAT 96; BMI 30.6
--- OUTSIDE RECORDS SUMMARY | 2025-06-20 12:09 | XMS_ITS | Clinical Summary ---
Author Organization [facility] Address [address] [facility] [address] [place] [address] Phone Care Team Providers Care Coal Carrier Name Role Phone Hernesto Griffiths MD Primary Care Provider Allergies No known active allergies Medications allopurinol (ZYLOPRIM) 100 MG tablet Take 1 tablet by mouth 1 (one) time each day Active aspirin (ST LUPE) 81 MG EC tablet Take 1 tablet by mouth 1 (one) time each day Active losartan (COZAAR) 50 MG tablet Take 50 mg by mouth 1 (one) time each day Active atorvastatin (LIPITOR) 40 MG tablet Take 40 mg by mouth 1 (one) time each day Active metoprolol succinate XL (TOPROL XL) 50 MG 24 hr tabletIndication s:Hypertensive disorder TAKE 1 TABLET (50 MG TOTAL) BY MOUTH 1 (ONE) TIME EACH DAY DO NOT CRUSH OR CHEW. 90 tablet 5 07/03/2023 Active Active Problems Problem Noted Date Diagnosed Date Benign prostatic hyperplasia 04/09/2023 Chronic kidney disease stage 3 04/09/2023 Dyslipidemia 04/09/2023 Gout 04/09/2023 Obese class I 04/09/2023 Acute nontraumatic kidney injury 03/20/2021 Edema 03/20/2021 Hypertensive disorder 03/20/2021 Family History Medical History Relation Comments Heart disease Father Relation Status Comments Father Mother Social History Tobacco Use Types Packs/Day Years Used Date Smoking Tobacco: Former Smokeless Tobacco: Never Tobacco Cessation:Counseling Given: Not Answered Sex and Gender Information Value Date Recorded Sex Assigned at Not on file Legal Sex Male 4:53 PM EST Gender Identity Not on file Sexual Orientation Not on file Last Filed Vital Signs Vital Sign Reading Time Taken Comments Blood Pressure 138/78 04/09/2023 1:57 PM EDT Pulse 58 04/09/2023 1:57 PM EDT Temperature - - Respiratory Rate - - Oxygen Saturation 97% 03/21/2021 2:11 PM EDT Inhaled Oxygen Concentration - - Weight 105 kg (230 lb 12.8 oz) 04/09/2023 1:57 P M EDT Height 180.3 cm (5' 11 ) 03/08/2020 12:00 PM EDT Body Mass Index 32.19 03/08/2020 12:00 PM EDT Plan of Treatment Health Maintenance Due Date Last Done Comments Pneumococcal Vaccine: 50+ Ye ars (1 of 2 - PCV) 01[birth year]26/1964 Influenza Vaccine (#1) 2025 Hepatitis B Vaccine Aged Out No longe r eligible based on patient's age to complete this topic Insurance Medicare Medicare Care Teams Coal Carrier Relationship Specialty Start Date End Date Hernesto Griffiths MD [facility] [place] [address] PCP - General Internal Medicine 04/09/23
--- OUTSIDE RECORDS SUMMARY | 2025-06-20 12:09 | XMS_ITS | Clinical Summary ---
Author Organization [facility] Address [address] [place] [address] Care Team Providers Care Production Grip Name Role Phone Unavailable Primary Care Provider Unavailabl e Social History Tobacco Use Types Packs/Day Years Used Date Smoking Tobacco: Never Assessed Sex and Gender Information Value Date Recorded Sex Assigned at Not on file Legal Sex Male 4:44 PM EDT Gender Identity Not on file Sexual Orientation Not on file Plan of Treatment Health Maintenance Due Date Last Done Comments DTaP/Tdap/Td Vaccines (1 - Tdap) 01/26/1964 Pneumococcal Vaccines 50+ (1 of 1 - PCV) 01/26/1994 Zoster (Shingles) Vaccine (1 of 2) 01/26/1994 RSV Vaccine 60 years and old er and Patients (1 - 1-dose 75+ series) 01/26/2019 COVID-19 Vaccine (2023-2 5 season) 2024 Hepatitis B Vaccines Aged Out No long er eligible based on patient's age to complete this topic
== END 2025-06-20 11:59 | disposition home or self-care (01) ==
LOC: HO.HKAS 11:13
PROVIDERS: PCP Internal Medicine; Visit Provider Internal Medicine Nephrology
DX: N18.31 Chronic kidney disease, stage 3a (principal); I10 Essential (primary) hypertension
CPT/HCPCS: 99214

== ENCOUNTER → 2025-06-20 11:13 | Outpatient (BNVA) | payer MEDICARE, SELFPAY | PROVIDERS: PCP Internal Medicine; Visit Provider Internal Medicine Nephrology | DX: I12.9 Hypertensive chronic kidney disease with stage 1 through stage 4 chronic kidney disease, or unspecified chronic kidney disease (principal); N18.31 Chronic kidney disease, stage 3a | CPT/HCPCS: 99212 ==